=== PATIENT | female | born 1955 | race Caucasian/White ===

== ENCOUNTER → 2018-01-22 | Outpatient (CLI) | payer MEDICARE, MEDICAID ==
--- NOTE | 2018-01-23 10:42 | Diagnostic Imaging Report ---
Digital mammogram. Bilateral screening with 3-D tomosynthesis. The study was compared to prior exams of 03/30/2015. At this time there are no current complaints. The previous exam did note a poorly defined nodular density overlying the pectoralis muscle of the left breast on the MLO view. It was recommended this area be compressed in the MLO projection and ultrasound be performed. Those additional images were not obtained however. On this exam the density in question has increased in size and density. This finding is worrisome for malignancy. I would recommend that a compression view of this area be obtained in the MLO projection as well as an axial CC view for further study. Ultrasound should also be performed. The prior exam also noted a smaller area of increased density in the 12 o'clock position of the right breast. That finding is not as conspicuous on this exam. The tomographic images do suggest that there is a roughly 1 cm oval density in this area however. This may represent a cyst. I would recommend ultrasound of the right breast be performed for further study. Fibroglandular tissue in both breasts is extremely dense. This does limit the sensitivity of this exam. As on the previous study, there are numerous macro and microcalcifications scattered throughout both breasts. There is no primary or secondary sign of malignancy noted otherwise. Impression: 1. The nodular density overlying the pectoralis muscle on the left seen on previous exam has increased in size and density. This finding is worrisome for malignancy. Additional mammographic views and ultrasound would be recommend for further study. 2. Ultrasound would also be recommended for further evaluation of the nodular density in the 12 o'clock position of the right breast. ACR BI-RADS Category 0: Incomplete. (Needs additional imaging evaluation). Result letter will be mailed to the patient. Note: At least 10% of breast cancer is not imaged by mammography. Dictated on workstation # [id number]
== END ==
LOC: RAD 10:07
PROVIDERS: ATTEND Nurse Practitioner Community Health
DX: Z12.31 Encounter for screening mammogram for malignant neoplasm of breast (principal); R92.8 Other abnormal and inconclusive findings on diagnostic imaging of breast
CPT/HCPCS: 77067

== ENCOUNTER → 2018-02-12 | Outpatient (CLI) | payer MEDICARE, MEDICAID ==
--- NOTE | 2018-02-12 21:11 | Diagnostic Imaging Report ---
EXAM: Bilateral breast ultrasound, limited. INDICATION: Abnormal mammogram FINDINGS: The screening mammogram performed on 01/22/2018 noted a poorly defined density overlying the pectoralis muscle of the left breast in the upper-outer quadrant of the breast. The diagnostic mammogram performed prior to this study also identified this finding. On this exam, there is a 1.3 x 0.9 x 1.1 CM vascular mass in the 2 o'clock position roughly 12 CM from the nipple. This would correspond to the density seen on the mammogram. This finding is worrisome for malignancy. An ultrasound guided biopsy would be recommended for further study. There is also a 1.0 x 0.7 CM lymph node in this area. This lymph node has a generally benign appearance although it does seem somewhat hypervascular. Consequently, it could be involved by neoplasm, as well. There are also 2 benign-appearing cysts in the 12 o'clock position roughly 2 CM from the nipple. These measure approximately 0.6 x 0.6 CM and 1.0 x 1.1 CM. These cysts have a generally benign appearance. The screening mammogram also suggests that there may be a small rounded density in the 12 o'clock position of the right breast. The ultrasound examination of this area shows no definite abnormality in this region. However, in the 9 o'clock position approximately 3 CM from the nipple, there is a 0.9 x 0.8 x 0.8 CM avascular cyst with internal echoes. I suspect that this is a cyst which has bee complicated by infection and/or hemorrhage. It may prove worthwhile to have a short-term (6 month) followup ultrasound exam of this finding for further evaluation. IMPRESSION: 1. There is a solid mass in the upper-outer quadrant of the left breast. This would correspond to the mammographic abnormality and this finding is worrisome for neoplasm. Recommendations as above. 2. The suspected complex cyst in the 9 o'clock position of the right breast is most likely a benign process. A six-month follow-up ultrasound exam would be recommended for continued evaluation. 3. These results will be discussed with OZZY Gusman. ACR BI-RADS Category 4: Suspicious abnormality. Result letter will be mailed to the patient. Note: At least 10% of breast cancer is not imaged by mammography. CRITICAL FINDINGS Dictated by: Dictated on workstation # [id number]
--- NOTE | 2018-02-12 21:28 | Diagnostic Imaging Report ---
Unilateral diagnostic left mammogram. INDICATION: Abnormal screening mammogram. The current study was also evaluated with a Computer Aided Detection (CAD) system. FINDINGS: The screening mammogram performed on 01/22/2018 noted poorly defined nodular density overlying the pectoralis muscle of the left breast on the MLO view. The compression views of this area show that there is a poorly defined roughly 1 CM nodule in the upper-outer quadrant of the left breast. This finding is worrisome for malignancy. Ultrasound would be recommended for further evaluation. IMPRESSION: The poorly defined nodule in the upper-outer aspect of left breast is worrisome for malignancy. Ultrasound would be recommended for further study. ACR BI-RADS Category 0: Incomplete. (Needs additional imaging evaluation). Result letter will be mailed to the patient. Note: At least 10% of breast cancer is not imaged by mammography. Dictated by: Dictated on workstation # [id number]
== END ==
LOC: RAD 13:40
PROVIDERS: ATTEND Nurse Practitioner Community Health
DX: Z12.31 Encounter for screening mammogram for malignant neoplasm of breast (principal); N63.21 Unspecified lump in the left breast, upper outer quadrant; R92.8 Other abnormal and inconclusive findings on diagnostic imaging of breast
CPT/HCPCS: 76642

== ENCOUNTER 2018-03-16 13:18 | Outpatient (RCR) | payer MEDICARE, MEDICAID ==
[2018-03-16 14:47] LABS: BASOPHILS % (AUTO) 0 % (0-10); EOSINOPHILS # (AUTO) 0.1 10^3/uL (0.0-0.3); EOSINOPHILS % (AUTO) 1 % (0-10); HEMATOCRIT 40 % (35-52); HEMOGLOBIN 12.7 G/DL (11.5-16.0); LYMPHOCYTES # (AUTO) 2.6 X 10^3 (1.0-4.0); LYMPHOCYTES % (AUTO) 34 % (12-44); MEAN CORPUSCULAR HEMOGLOBIN 32 PG (25-34); MEAN CORPUSCULAR HGB CONC 32 G/DL (32-36); MEAN CORPUSCULAR VOLUME 102 FL (80-99); MEAN PLATELET VOLUME 9.8 FL (7.4-10.4); MONOCYTES # (AUTO) 0.5 X 10^3 (0.0-1.0); MONOCYTES % (AUTO) 7 % (0-12); NEUTROPHILS # (AUTO) 4.5 X 10^3 (1.8-7.8); NEUTROPHILS % (AUTO) 58 % (42-75); PLATELET COUNT 275 10^3/uL (130-400); RED CELL DISTRIBUTION WIDTH 13.4 % (10.0-14.5); WHITE BLOOD COUNT 7.8 10^3/uL (4.3-11.0)
[2018-03-16 15:09] LABS: ALANINE AMINOTRANSFERASE 16 U/L (0-55); ALKALINE PHOSPHATASE 94 U/L (40-136); BILIRUBIN,TOTAL 0.2 MG/DL (0.1-1.0); BUN/CREATININE RATIO 32; CALCIUM 9.4 MG/DL (8.5-10.1); CARBON DIOXIDE 29 MMOL/L (21-32); CHLORIDE 108 MMOL/L (98-107); CREATININE SERUM 0.77 MG/DL (0.60-1.30); GFR ESTIMATED > 60; GLUCOSE 83 MG/DL (70-105); POTASSIUM 4.4 MMOL/L (3.6-5.0); SODIUM 146 MMOL/L (135-145); TOTAL PROTEIN 7.3 GM/DL (6.4-8.2)
== END 2018-06-14 | disposition home or self-care (01) ==
LOC: ONC 13:18
PROVIDERS: ATTEND Internal Medicine Hematology & Oncology
DX: C50.412 Malignant neoplasm of upper-outer quadrant of left female breast (principal); Z17.0 Estrogen receptor positive status [ER+]; E78.5 Hyperlipidemia, unspecified; Z87.820 Personal history of traumatic brain injury; Z79.899 Other long term (current) drug therapy
CPT/HCPCS: 36415; 80053; 85025; 99214

== ENCOUNTER → 2018-03-22 | Outpatient (CLI) | payer MEDICARE, MEDICAID ==
[~2018-03-22] MED LIST: GADOBUTROL 7.5 MMOL/7.5 ML (GADAVIST) VIAL IV ONE
--- NOTE | 2018-03-23 13:08 | Diagnostic Imaging Report ---
TECHNIQUE: Utilizing a 1.5 Ayana magnet, the patient was placed in a prone position with an 8-channel dual breast coil utilized. Axial STIR precontrasted and axial T1 fat-sat post contrast high-resolution images were obtained. Sagittal T2-weighted images precontrast bilaterally were performed as well. Sagittal vibrant temporal images were obtained pre and post contrast with bolus technique utilizing gadolinium. Images are post contrast immediately and subsequently for 7 minutes. Axial post contrast imaging was also obtained. Pre and post contrasted images were then evaluated with Whisper for evaluation of possible angiogenesis. INDICATION: Lobular breast cancer. COMPARISON: 03/07/2018, 02/12/2018, and 01/22/2018. FINDINGS: The bilateral breasts demonstrate severe background glandularity. The bilateral breasts demonstrate mild background enhancement. An irregular 1.4 x 1.2 cm enhancing mass is identified within the left axilla. Magnetic susceptibility artifact is identified within the region, consistent with the biopsy clip that was recently placed. This mass demonstrates enhancement including washout kinetics. This mass is seen extending to and abutting the overlying skin surface within the left axilla. Multiple scattered T1 hyperintense round masses are identified throughout the bilateral breasts. There is no significant enhancement associated with any of these T1 hyperintense lesions. Additionally, a T2 hyperintense cyst with thin peripheral enhancement is identified within the left breast at 12 o'clock at anterior to middle depth. No concerning enhancement is associated with this cyst. No additional suspicious mass or non-mass enhancement within either breast. No additional axillary or internal mammary adenopathy. The minimally visualized portions of the upper abdomen are unremarkable. IMPRESSION: 1.4 x 1.2 cm irregular enhancing mass within the left axilla is consistent with the patient's known neoplasm. This does appear to extend to the skin surface based upon this MRI. No additional suspicious mass or non-mass enhancement. Multiple bilateral T1 hyperintense debris-filled cysts without suspicious enhancement are felt to be benign in nature. BI-RADS CATEGORY 6: Known malignancy. FOLLOWUP: Continued surgical consultation for known left breast carcinoma. Dictated by: Dictated on workstation # [id number]
== END ==
LOC: RAD 10:19
PROVIDERS: ATTEND Internal Medicine Hematology & Oncology
DX: C50.919 Malignant neoplasm of unspecified site of unspecified female breast (principal); R22.32 Localized swelling, mass and lump, left upper limb; M85.68 Other cyst of bone, other site
CPT/HCPCS: 77049

== ENCOUNTER → 2018-06-20 | Outpatient (CLI) | payer MEDICARE, MEDICAID ==
[2018-06-20 09:42] LABS: BASOPHILS % (AUTO) 0 % (0-10); EOSINOPHILS % (AUTO) 0 % (0-10); HEMATOCRIT 37 % (35-52); HEMOGLOBIN 11.7 G/DL (11.5-16.0); LYMPHOCYTES # (AUTO) 1.7 X 10^3 (1.0-4.0); LYMPHOCYTES % (AUTO) 21 % (12-44); MEAN CORPUSCULAR HEMOGLOBIN 32 PG (25-34); MEAN CORPUSCULAR HGB CONC 32 G/DL (32-36); MEAN CORPUSCULAR VOLUME 100 FL (80-99); MEAN PLATELET VOLUME 9.1 FL (7.4-10.4); MONOCYTES # (AUTO) 0.6 X 10^3 (0.0-1.0); MONOCYTES % (AUTO) 8 % (0-12); NEUTROPHILS # (AUTO) 5.7 X 10^3 (1.8-7.8); NEUTROPHILS % (AUTO) 71 % (42-75); PLATELET COUNT 246 10^3/uL (130-400); RED CELL DISTRIBUTION WIDTH 13.5 % (10.0-14.5); WHITE BLOOD COUNT 8.1 10^3/uL (4.3-11.0)
[2018-06-20 10:09] LABS: ALANINE AMINOTRANSFERASE 20 U/L (0-55); ALBUMIN 3.6 GM/DL (3.2-4.5); ALKALINE PHOSPHATASE 97 U/L (40-136); BILIRUBIN,TOTAL 0.3 MG/DL (0.1-1.0); BUN/CREATININE RATIO 25; CALCIUM 9.2 MG/DL (8.5-10.1); CARBON DIOXIDE 33 MMOL/L (21-32); CHLORIDE 100 MMOL/L (98-107); CREATININE SERUM 0.77 MG/DL (0.60-1.30); GFR ESTIMATED > 60; GLUCOSE 92 MG/DL (70-105); POTASSIUM 3.9 MMOL/L (3.6-5.0); SODIUM 140 MMOL/L (135-145); TOTAL PROTEIN 6.5 GM/DL (6.4-8.2)
== END ==
LOC: LAB 09:27
PROVIDERS: ATTEND Internal Medicine Hematology & Oncology
DX: C50.412 Malignant neoplasm of upper-outer quadrant of left female breast (principal); Z17.0 Estrogen receptor positive status [ER+]
CPT/HCPCS: 36415; 80053; 85025

== ENCOUNTER → 2018-07-11 | Outpatient (CLI) | payer MEDICARE, MEDICAID ==
[2018-07-11 11:48] LABS: BASOPHILS % (AUTO) 0 % (0-10); EOSINOPHILS % (AUTO) 0 % (0-10); HEMATOCRIT 38 % (35-52); HEMOGLOBIN 11.9 G/DL (11.5-16.0); LYMPHOCYTES # (AUTO) 1.1 X 10^3 (1.0-4.0); LYMPHOCYTES % (AUTO) 10 % (12-44); MEAN CORPUSCULAR HEMOGLOBIN 31 PG (25-34); MEAN CORPUSCULAR HGB CONC 32 G/DL (32-36); MEAN CORPUSCULAR VOLUME 99 FL (80-99); MONOCYTES # (AUTO) 0.2 X 10^3 (0.0-1.0); MONOCYTES % (AUTO) 2 % (0-12); NEUTROPHILS # (AUTO) 9.6 X 10^3 (1.8-7.8); NEUTROPHILS % (AUTO) 88 % (42-75); PLATELET COUNT 279 10^3/uL (130-400); RED CELL DISTRIBUTION WIDTH 13.6 % (10.0-14.5); WHITE BLOOD COUNT 10.9 10^3/uL (4.3-11.0)
[2018-07-11 12:07] LABS: ALANINE AMINOTRANSFERASE 28 U/L (0-55); ALBUMIN 3.7 GM/DL (3.2-4.5); ALKALINE PHOSPHATASE 83 U/L (40-136); BILIRUBIN,TOTAL 0.3 MG/DL (0.1-1.0); BUN/CREATININE RATIO 16; CALCIUM 9.6 MG/DL (8.5-10.1); CARBON DIOXIDE 32 MMOL/L (21-32); CHLORIDE 105 MMOL/L (98-107); CREATININE SERUM 0.74 MG/DL (0.60-1.30); GFR ESTIMATED > 60; GLUCOSE 103 MG/DL (70-105); SODIUM 142 MMOL/L (135-145); TOTAL PROTEIN 6.7 GM/DL (6.4-8.2)
[2018-07-11 12:11] LABS: BAND NEUTROPHILS 4 %; BASOPHILS % (MANUAL) 0 %; EOSINOPHILS % (MANUAL) 0 %; LYMPHOCYTES % (MANUAL) 9 %; MONOCYTES % (MANUAL) 2 %; NEUTROPHILS % (MANUAL) 85 %; RBC MORPH NORMAL
== END ==
LOC: LAB 11:27
PROVIDERS: ATTEND Internal Medicine Hematology & Oncology
DX: C50.912 Malignant neoplasm of unspecified site of left female breast (principal); Z17.0 Estrogen receptor positive status [ER+]
CPT/HCPCS: 36415; 80053; 85007; 85027

== ENCOUNTER → 2018-08-01 | Outpatient (CLI) | payer MEDICARE, MEDICAID | LOC: LAB 08:00 | PROVIDERS: ATTEND Internal Medicine Hematology & Oncology | DX: C50.912 Malignant neoplasm of unspecified site of left female breast (principal); Z17.0 Estrogen receptor positive status [ER+] ==

== ENCOUNTER 2018-11-13 07:50 | Outpatient (RCR) | payer MEDICARE, MEDICAID | END 2018-12-18 | disposition home or self-care (01) | LOC: ONC 07:50 | PROVIDERS: ATTEND Internal Medicine Hematology & Oncology | DX: Z51.0 Encounter for antineoplastic radiation therapy (principal); C50.412 Malignant neoplasm of upper-outer quadrant of left female breast; Z17.0 Estrogen receptor positive status [ER+]; E78.5 Hyperlipidemia, unspecified; Z87.820 Personal history of traumatic brain injury; Z79.899 Other long term (current) drug therapy | CPT/HCPCS: 77280; 77290; 77295; 77300; 77307; 77334; 77336; 77417; 77470; 99204 ==

== ENCOUNTER → 2018-12-25 | Outpatient (CLI) | payer MEDICARE, MEDICAID ==
--- NOTE | 2018-12-25 09:31 | Diagnostic Imaging Report ---
INDICATION: Postmenopausal female. COMPARISON: None. FINDINGS: AP Spine L1-L4: [BMD (g/cm2): 1.102] [T-Score: -0.8] [Z-Score: 0.7] [BMD Previous: N/A] [BMD % Change: N/A] LT Hip Neck: [BMD (g/cm2): 0.797] [T-Score: -1.7] [Z-Score: -0.3] LT Hip Total: [BMD (g/cm2):0.922] [T-Score:-0.7] [Z-Score: 0.5] [BMD Previous: N/A] [BMD % Change: N/A] RT Hip Neck: [BMD (g/cm2):0.665] [T-Score:-2.7] [Z-Score:-1.2] RT Hip Total: [BMD (g/cm2):0.802] [T-score:-1.6] [Z-Score:-0.5] [BMD Previous:N/A] [BMD % Change:N/A] *Indicates significant change from prior examination based on 95% confidence level. World Health Organization criteria for BMD interpretation classify patients as Normal (T-score at or above -1.0), Osteopenic (T-score between -1.0 and -2.5) or Osteoporotic (T-score at or below -2.5). LIMITATIONS AND MODIFICATION: Degenerative changes in the lower lumbar spine may falsely elevate bone density. FRACTURE RISK (FRAX SCORE): Not applicable. IMPRESSION: 1. Osteoporosis. 2. Baseline examination. 3. See below National Osteoporosis Foundation guidelines on when to potentially initiate pharmacologic therapy. Based on the National Osteoporosis Foundation Guidelines, pharmacologic treatment should be initiated in any of the following, unless clinical conditions suggest otherwise: * Any patient with prior fragility fracture of the hip or vertebrae. A spine fracture indicates 5X risk for subsequent spine fracture and 2X risk for subsequent hip fracture. * Osteoporosis (T-score <-2.5). * Postmenopausal women and men age 50 and older with low bone mass/osteopenia (T-score between -1.0 and -2.5) by DXA and 10-year major osteoporotic fracture greater than 20% or a 10-year probability of hip fracture greater than 3%. These fracture risks are supplied above in the FRAX score, if applicable. * Clinician judgement and/or patient preferences may indicate treatment for people with 10-year fracture probabilities above or below these levels. Dictated by: Dictated on workstation # [id number]
== END ==
LOC: RAD 08:07
PROVIDERS: ATTEND Internal Medicine Hematology & Oncology
DX: C50.912 Malignant neoplasm of unspecified site of left female breast (principal); N81.0 Urethrocele; Z17.0 Estrogen receptor positive status [ER+]; Z78.0 Asymptomatic menopausal state
CPT/HCPCS: 77080

== ENCOUNTER 2019-01-16 05:29 | Outpatient (CLI) | payer MEDICARE, MEDICAID ==
[~2019-01-16] VITALS: Ht 63 cm; Wt 59.0 kg
[2019-01-16] MEDS ORDERED: MELA10TA3 PO (10:59)
[2019-01-16] MEDS ORDERED: ATOR40TA70 PO (10:59)
[2019-01-16] MEDS ORDERED: MEMA28CA5 PO (10:59)
[2019-01-16] MEDS ORDERED: LETR2.5T5 PO (10:59)
[2019-01-16] MEDS ORDERED: AMIT100T2 PO (10:59)
[2019-01-16] MEDS ORDERED: DONE23TA PO (10:59)
[2019-01-16] MEDS ORDERED: CA C1TAB75 PO (10:59)
[2019-01-16] MEDS ORDERED: GBPN600T PO (10:59)
== END 2019-01-16 11:46 | disposition home or self-care (01) ==
LOC: PREOP 05:29
PROVIDERS: ATTEND Specialist
DX: Z01.818 Encounter for other preprocedural examination (principal)

== ENCOUNTER 2019-01-18 09:57 | Day surgery (SDC) | payer MEDICARE, MEDICAID ==
[~2019-01-18] VITALS: Ht 160 cm; Wt 59.0 kg
[~2019-01-18 09:57] MED LIST changes: +AMIT100T2 PO; +ATOR40TA70 PO; +CA C1TAB75 PO; +DONE23TA PO; -GADOBUTROL 7.5 MMOL/7.5 ML (GADAVIST) VIAL IV ONE; +GBPN600T PO; +LETR2.5T5 PO; +MELA10TA3 PO; +MEMA28CA5 PO
[2019-01-18 10:00] VITALS: BP 111/68
[2019-01-18] MEDS ORDERED: TIMOLOL MALEATE 0.5% 5 ML (TIMOPTIC) BTL OU PRN (10:15)
[2019-01-18] MEDS ORDERED: MOXIFLOXACIN OPHTH SOLN 5 MG/ML 0.3 ML SYRINGE OP ONE (10:15)
[2019-01-18] MEDS ORDERED: POVIDONE (BETADINE) OPHTH SOLN 5% 30 ML OP ONE (10:15)
[2019-01-18] MEDS ORDERED: LIDOCAINE PF 1% 2 ML AMP IR PRN (10:15)
[2019-01-18] MEDS: TETRACAINE 0.5% OPHTH SOLN 4 ML BTL (SINGLE DOSE ONLY) OU PRN ×4 (10:25→10:50)
[2019-01-18] MEDS: PHENYLEPHRINE 10% OPHTH (NEO-SYN) 5 ML BTL OU SCH ×3 (10:33→10:50)
[2019-01-18] MEDS: CYCLOPENTOLATE 1% (CYCLOGYL) 2 ML DROPS OP SCH ×3 (10:34→10:50)
[2019-01-18] MEDS ORDERED: MIDAZOLAM 2 MG/2 ML (VERSED) VIAL ONE (10:52)
--- NOTE | 2019-01-18 11:10 | Ophthalmologist Pre-Op Note ---
Pre-Operative Progress Note H&P Reviewed The H&P was reviewed, patient examined and no changes noted. Date H&P Reviewed: Jan 18, 2019 Time H&P Reviewed: 11:09 Pre-Op Dx Cataract, Left Eye NINO DELAROSA MD Jan 18, 2019 11:10 POS
[2019-01-18] MEDS ORDERED: acetaZOLAMIDE ER 500 MG CAP (DIAMOX SEQUELS) PO ONE (11:30)
--- NOTE | 2019-01-18 11:35 | Ophthalmology Operative Report ---
Cataract, Miotic Pupil PREOPERATIVE DIAGNOSIS: 1. Cataract Left Eye 2. Miotic Pupil POSTOPERATIVE DIAGNOSIS: 1. Cataract Left Eye 2. Miotic Pupil PROCEDURE: 1. Cataract removal and placement of posterior chamber implant, left eye 2. Pupillary expansion with malyugin ring SURGEON: Marcos Delarosa ANESTHESIA: Topical with sedation COMPLICATIONS: None ESTIMATED BLOOD LOSS: Minimal DESCRIPTION OF PROCEDURE: After proper informed consent was obtained, the patient, a 63 female, was taken to the Operating Room and the left eye was anesthetized with Tetracaine. The eye was then prepped and draped in the usual manner. A wire lid speculum was placed. A paracentesis was made at the left hand position. Preservative free l idocaine was injected into anterior chamber followed by viscoelastic. A clear corneal incision was made in the temporal position. The malyugin ring was injected into the anterior chamber and the pupil was dilated. A capsulorrhexis was preformed and the central nuclear and cortical material were removed. The posterior capsule was polished and Gómez 20.0 AU00T0 IOL was placed into the capsular bag. The myalgian ring was removed. The residual viscoelastic was aspirated and the balanced saline solution was injected into the anterior chamber. Moxifloxacin was injected into the anterior chamber. The wound was checked and found to be water tight. The patient tolerated the procedure well without complications. [Limbal Relaxing Incision placed ] [ ]mm at [ ]. MARCOS DELAROSA MD Jan 18, 2019 11:35 POS
[2019-01-18 11:40] VITALS: BP 90/54
--- NOTE | 2019-01-18 13:10 | Anesthesia-General Post-Op ---
MAC Patient Condition Mental Status/LOC: Same as Preop Cardiovascular: Satisfactory Nausea/Vomiting: Absent Respiratory: Satisfactory Pain: Controlled Complications: Absent Post Op Complications Complications None Follow Up Care/Instructions Patient Instructions None needed. Anesthesiology Discharge Order Discharge Order Patient is doing well, no complaints, stable vital signs, no apparent adverse anesthesia problems. No complications reported per nursing. KATERINA BUCK CRNA Jan 18, 2019 13:10 POS
== END 2019-01-18 11:40 | disposition home or self-care (01) ==
LOC: SDC 09:57
PROVIDERS: ATTEND Specialist
DX: H25.12 Age-related nuclear cataract, left eye (principal); H57.03 Miosis; F41.9 Anxiety disorder, unspecified; E78.00 Pure hypercholesterolemia, unspecified; Z85.3 Personal history of malignant neoplasm of breast; Z87.891 Personal history of nicotine dependence; F32.9 Major depressive disorder, single episode, unspecified; G62.9 Polyneuropathy, unspecified; Z79.899 Other long term (current) drug therapy

== ENCOUNTER 2019-01-18 10:37 | Outpatient (CLI) | payer MEDICARE, MEDICAID ==
[~2019-01-18] VITALS: Ht 160 cm; Wt 59.0 kg
== END 2019-01-18 13:30 | disposition home or self-care (01) ==
LOC: PREOP 10:37
PROVIDERS: ATTEND Surgery
DX: Z01.818 Encounter for other preprocedural examination (principal)

== ENCOUNTER 2019-02-07 09:15 | Outpatient (CLI) | payer MEDICARE, MEDICAID | END 2019-02-07 09:59 | disposition home or self-care (01) | LOC: PREOP 09:15 | PROVIDERS: ATTEND Specialist | DX: Z01.818 Encounter for other preprocedural examination (principal) ==

== ENCOUNTER 2019-02-08 10:03 | Day surgery (SDC) | payer MEDICARE, MEDICAID ==
[~2019-02-08] VITALS: Ht 160 cm; Wt 59.0 kg
[2019-02-08 10:10] VITALS: BP 113/63
[2019-02-08] MEDS ORDERED: POVIDONE (BETADINE) OPHTH SOLN 5% 30 ML OP ONE (10:15)
[2019-02-08] MEDS ORDERED: TIMOLOL MALEATE 0.5% 5 ML (TIMOPTIC) BTL OU PRN (10:15)
[2019-02-08] MEDS ORDERED: LIDOCAINE PF 1% 2 ML AMP IR PRN (10:15)
[2019-02-08] MEDS ORDERED: MOXIFLOXACIN OPHTH SOLN 5 MG/ML 0.3 ML SYRINGE OP ONE (10:15)
[2019-02-08] MEDS: TETRACAINE 0.5% OPHTH SOLN 4 ML BTL (SINGLE DOSE ONLY) OU PRN ×4 (10:22→10:52)
[2019-02-08] MEDS: PHENYLEPHRINE 10% OPHTH (NEO-SYN) 5 ML BTL OU SCH ×3 (10:32→10:52)
[2019-02-08] MEDS: CYCLOPENTOLATE 1% (CYCLOGYL) 2 ML DROPS OP SCH ×3 (10:32→10:52)
--- NOTE | 2019-02-08 10:38 | Ophthalmologist Pre-Op Note ---
Pre-Operative Progress Note H&P Reviewed The H&P was reviewed, patient examined and no changes noted. Date H&P Reviewed: Feb 08, 2019 Time H&P Reviewed: 10:38 Pre-Op Dx Cataract, Right Eye NINO DELAROSA MD Feb 08, 2019 10:38 POS
[2019-02-08] MEDS ORDERED: MIDAZOLAM 2 MG/2 ML (VERSED) VIAL ONE (11:10)
--- NOTE | 2019-02-08 11:29 | Ophthalmology Operative Report ---
Cataract removal/placement IOL PREOPERATIVE DIAGNOSIS: Cataract Right Eye POSTOPERATIVE DIAGNOSIS: Cataract Right Eye PROCEDURE: Cataract removal and placement of posterior chamber implant, right eye SURGEON: Marcos Delarosa ANESTHESIA: Topical with sedation COMPLICATIONS: None ESTIMATED BLOOD LOSS: Minimal DESCRIPTION OF PROCEDURE: After proper informed consent was obtained, the patient, a 63 female, was taken to the Operating Room and the right eye was anesthetized with tetracaine. The right eye was then prepped and draped in the usual manner. A wire lid speculum was placed. A paracentesis was made at the left hand position. Preservative free lidocaine was injected into the anterior chamber followed by viscoelastic. A clear corneal incision was made in the temporal position. A capsulorrhexis was preformed and the central nuclear and cortical material were removed. The posterior capsule was polished and Gómez 20.0 AU00T0 IOL was placed into the capsular bag. The residual viscoelastic was aspirated and balanced saline solution was injected into the anterior chamber. Moxifloxacin was injected into the anterior chamber. The wound was checked and found to be water tight. The patient tolerated the procedure well without complications. MARCOS DELAROSA MD Feb 08, 2019 11:29 POS
[2019-02-08 11:37] VITALS: BP 98/48
[2019-02-08] MEDS ORDERED: acetaZOLAMIDE ER 500 MG CAP (DIAMOX SEQUELS) PO ONE (12:00)
--- NOTE | 2019-02-08 12:00 | Anesthesia-General Post-Op ---
MAC Patient Condition Mental Status/LOC: Same as Preop Cardiovascular: Satisfactory Nausea/Vomiting: Absent Respiratory: Satisfactory Pain: Controlled Complications: Absent Post Op Complications Complications None Follow Up Care/Instructions Patient Instructions None needed. Anesthesiology Discharge Order Discharge Order Patient is doing well, no complaints, stable vital signs, no apparent adverse anesthesia problems. No complications reported per nursing. DEB HUDSON CRNA Feb 08, 2019 12:00 POS
== END 2019-02-08 11:37 | disposition home or self-care (01) ==
LOC: SDC 10:03
PROVIDERS: ATTEND Specialist
DX: H25.11 Age-related nuclear cataract, right eye (principal); E78.5 Hyperlipidemia, unspecified; G62.9 Polyneuropathy, unspecified; E78.00 Pure hypercholesterolemia, unspecified; F32.9 Major depressive disorder, single episode, unspecified; F41.9 Anxiety disorder, unspecified; Z85.3 Personal history of malignant neoplasm of breast; Z90.710 Acquired absence of both cervix and uterus; Z79.899 Other long term (current) drug therapy

== ENCOUNTER 2019-03-08 12:30 | Outpatient (CLI) | payer MEDICARE, MEDICAID ==
[~2019-03-08] VITALS: Ht 160 cm; Wt 59.0 kg
== END 2019-03-08 12:58 | disposition home or self-care (01) ==
LOC: PREOP 12:30
PROVIDERS: ATTEND Surgery
DX: Z01.818 Encounter for other preprocedural examination (principal)

== ENCOUNTER 2019-05-05 10:20 | Emergency (ER) | payer OTHER, MEDICAID ==
[~2019-05-05] VITALS: Ht 157.4 cm; Wt 61.8 kg
[~2019-05-05 10:20] MED LIST changes: -LETR2.5T5 PO; +LETR2.5T6 PO
--- NOTE | 2019-05-05 10:40 | NUR ---
NO MED LIST WITH PATIENT
--- NOTE | 2019-05-05 10:42 | ED Upper Extremity ---
General Chief Complaint: Upper Extremity Stated Complaint: L ARM SWOLLEN/POSS FLUID/BREAST CANCER Source: patient Exam Limitations: no limitations History of Present Illness Date Seen by Provider: May 05, 2019 Time Seen by Provider: 10:41 Initial Comments 63-year-old female brought in with left arm swollen. Patient reports that she noticed this morning that was swollen. It is warm to the touch. He denies any pain to the arm. She denies any pain. She does report she's had breast cancer on the left breast with surgery. Patient denies any other systemic complaints Allergies and Home Medications Allergies Coded Allergies: No Known Drug Allergies (Unverified , 01/18/19) Home Medications Amitriptyline HCl 100 Mg Tablet, 100 MG PO DAILY, (Reported) Atorvastatin Calcium 40 Mg Tablet, 40 MG PO DAILY, (Reported) Ca Carbonate/Vitamin D3/Vit K 1 Each Tab.chew, 1 EACH PO DAILY, (Reported) Donepezil HCl 23 Mg Tablet, 23 MG PO HS, (Reported) Gabapentin 600 Mg Tablet, 600 MG PO TID, (Reported) Letrozole 2.5 Mg Tablet, 2.5 MG PO DAILY, (Reported) Melatonin 10 Mg Tablet.er, 20 MG PO HS, (Reported) Memantine HCl 28 Mg Cap.spr.24, 28 MG PO DAILY, (Reported) Patient Home Medication List Home Medication List Reviewed: Yes Review of Systems Constitutional: No chills, No fever Respiratory: no symptoms reported Cardiovascular: no symptoms reported Gastrointestinal: no symptoms reported Genitourinary: no symptoms reported Musculoskeletal: see HPI Skin: see HPI Past Izpybgq-[id number]-Euhhsi Hx Past Med/Social Hx: Reviewed Nursing Past Med/Soc Hx Patient Social History Type Used: Cigarettes Former Smoker, Quit: Jan 19, 2012 2nd Hand Smoke Exposure: Yes Recent Foreign Travel: No Recent Hopitalizations: No Immunizations Up To Date Tetanus Booster (TDap): Unknown Seasonal Allergies Seasonal Allergies: No Past Medical History Surgeries: Yes (LUMPECTOMY WITH LYMPH NODE, CATARACT, ) Hysterectomy Respiratory: No Currently Using CPAP: No Currently Using BIPAP: No Cardiac: Yes High Cholesterol Neurological: Yes Headaches /Migraines, Neuropathy [employer] History: Hysterectomy Sexually Transmitted Disease: No HIV/AIDS: No Genitourinary: No Gastrointestinal: Yes (rectal mass) Chronic Constipation Musculoskeletal: No Endocrine: No HEENT: Yes Cataract Loss of Vision: Denies Hearing Impairment: Denies Cancer: Yes Breast Did You Recieve Any Treatments: Yes What Type of Treatment Did You: Chemotherapy, Radiation, Surgical Intervention Psychosocial: Yes Anxiety, Depression Integumentary: No Blood Disorders: No Adverse Reaction/Blood Tranf: No (N/A) Physical Exam Vital Signs Vital Signs - First Documented 05/05/19 10:32 Temp 36.8 Pulse 104 Resp 18 B/P (MAP) 106/47 (66) Pulse Ox 99 Capillary Refill : Height, Weight, BMI Height: 5'2.00" Weight: 140lbs. 0.0oz. 63.610604yc; 23.04 BMI Method: General Appearance: WD/WN, no apparent distress Neck: non-tender, supple Cardiovascular: normal peripheral pulses Respiratory: chest non-tender, lungs clear Gastrointestinal: non tender, soft Back: normal inspection Elbow/Forearm: swelling (patient with some minor swelling in the forearm wrist and hand. It is warm to the touch. There is no erythema) Neurologic/Tendon: normal sensation, normal tendon functions Neurologic/Psychiatric: trouble tracer II-XII nml as tested, normal mood/affect, oriented x 3 Skin: normal color Progress/Results/Core Measures Results/Orders Lab Results Laboratory Tests Test 05/05/19 11:08 Range/Units White Blood Count 4.3 4.3-11.0 10^3/uL Red Blood Count 3.81 L 4.35-5.85 10^6/uL Hemoglobin 12.0 11.5-16.0 G/DL Hematocrit 37 35-52 % Mean Corpuscular Volume 97 80-99 FL Mean Corpuscular Hemoglobin 31 25-34 PG Mean Corpuscular Hemoglobin Concent 32 32-36 G/DL Red Cell Distribution Width 13.4 10.0-14.5 % Platelet Count 197 130-400 10^3/uL Mean Platelet Volume 8.7 7.4-10.4 FL Neutrophils (%) (Auto) 68 42-75 % Lymphocytes (%) (Auto) 20 12-44 % Monocytes (%) (Auto) 11 0-12 % Eosinophils (%) (Auto) 1 0-10 % Basophils (%) (Auto) 1 0-10 % Neutrophils # (Auto) 2.9 1.8-7.8 X 10^3 Lymphocytes # (Auto) 0.8 L 1.0-4.0 X 10^3 Monocytes # (Auto) 0.5 0.0-1.0 X 10^3 Eosinophils # (Auto) 0.1 0.0-0.3 10^3/uL Basophils # (Auto) 0.0 0.0-0.1 10^3/uL Erythrocyte Sedimentation Rate 31 H 0-30 MM/HR D-Dimer 0.34 0.00-0.49 UG/ML Sodium Level 142 135-145 MMOL/L Potassium Level 4.0 3.6-5.0 MMOL/L Chloride Level 105 98-107 MMOL/L Carbon Dioxide Level 26 21-32 MMOL/L Anion Gap 11 5-14 MMOL/L Blood Urea Nitrogen 13 7-18 MG/DL Creatinine 0.77 0.60-1.30 MG/DL Estimat Glomerular Filtration Rate > 60 BUN/Creatinine Ratio 17 Glucose Level 139 H 70-105 MG/DL Uric Acid 3.3 2.6-7.2 MG/DL Calcium Level 9.0 8.5-10.1 MG/DL C-Reactive Protein High Sensitivity 0.36 0.00-0.50 MG/DL My Orders Orders - WILNER CASTRO L DO Basic Metabolic Panel (05/05/19 10:55) Cbc With Automated Diff (05/05/19 10:55) Hs C Reactive Protein (05/05/19 10:55) Erythrocyte Sedimentation Rate (05/05/19 10:55) Uric Acid (05/05/19 10:55) Fibrin Degradation Products (05/05/19 12:02) Vital Signs/I&O 05/05/19 10:32 Temp 36.8 Pulse 104 Resp 18 B/P (MAP) 106/47 (66) Pulse Ox 99 Progress Progress Note : Time: 12:32 Progress Note Patient with negative CRP, CBC, d-dimer with very slight elevation an ESR. Patient with likely lymphedema with low risk for blood clot. I will schedule an outpatient ultrasound of the right upper extremity however. At this time patient is not wanting Eliquis list or other prophylactic treatment for possible blood clot since his low risk. She should wear a compression sleeve and keep her extremity elevated. Follow-up with her primary care provider the next day or 2. Departure Impression Primary Impression: Lymphedema of left upper extremity Disposition: HOME, SELF-CARE Condition: Stable Departure-Patient Inst. Referrals: ALAN MITCHELL (PCP/Family) Primary Care Physician Patient Instructions: Lymphedema, Lowering Your Chance for Lymphedema, Swelling Add. Discharge Instructions: Please follow-up with her primary care provider in the next 1-2 days for continuation of care Emergency department focuses on treating and ruling out life-threatening d iseases. Whenever possible, a diagnosis is given. However, most patients are given an impression based on their history, physical exam, and workup during your brief time in the ER. Information about probable diagnosis and other educational material has been provided. Please take the time to read and understand this information. It is very important that you follow up with a physician as discussed during the visit today. Failure to adhere to your follow-up instructions may lead to severe disability, injury, or so please make sure to keep your appointments or obtain one as requested. Please keep in mind the emergency department is not designed to your primary care or "family doctor" and nonurgent issues are best evaluated by an outpatient physician All discharge instructions reviewed with patient and/or family. Voiced understanding. WILNER CASTRO DO May 05, 2019 10:41
[2019-05-05 11:16] LABS: BASOPHILS % (AUTO) 1 % (0-10); EOSINOPHILS # (AUTO) 0.1 10^3/uL (0.0-0.3); EOSINOPHILS % (AUTO) 1 % (0-10); HEMATOCRIT 37 % (35-52); LYMPHOCYTES # (AUTO) 0.8 X 10^3 (1.0-4.0); LYMPHOCYTES % (AUTO) 20 % (12-44); MEAN CORPUSCULAR HEMOGLOBIN 31 PG (25-34); MEAN CORPUSCULAR HGB CONC 32 G/DL (32-36); MEAN CORPUSCULAR VOLUME 97 FL (80-99); MEAN PLATELET VOLUME 8.7 FL (7.4-10.4); MONOCYTES # (AUTO) 0.5 X 10^3 (0.0-1.0); MONOCYTES % (AUTO) 11 % (0-12); NEUTROPHILS # (AUTO) 2.9 X 10^3 (1.8-7.8); NEUTROPHILS % (AUTO) 68 % (42-75); PLATELET COUNT 197 10^3/uL (130-400); RED CELL DISTRIBUTION WIDTH 13.4 % (10.0-14.5); WHITE BLOOD COUNT 4.3 10^3/uL (4.3-11.0)
[2019-05-05 11:40] LABS: BUN/CREATININE RATIO 17; CARBON DIOXIDE 26 MMOL/L (21-32); CHLORIDE 105 MMOL/L (98-107); CREATININE SERUM 0.77 MG/DL (0.60-1.30); GFR ESTIMATED > 60; GLUCOSE 139 MG/DL (70-105); SODIUM 142 MMOL/L (135-145); URIC ACID 3.3 MG/DL (2.6-7.2)
[2019-05-05 11:51] LABS: ERYTHROCYTE SEDIMENTATION RATE 31 MM/HR (0-30)
[2019-05-05 12:43] VITALS: BP 98/52
== END 2019-05-05 12:43 | disposition home or self-care (01) ==
LOC: EDUNIT# 10:20 → ER 10:21
DX: I89.0 Lymphedema, not elsewhere classified (principal); E78.00 Pure hypercholesterolemia, unspecified; F41.9 Anxiety disorder, unspecified; F32.9 Major depressive disorder, single episode, unspecified; Z85.3 Personal history of malignant neoplasm of breast; Z77.22 Contact with and (suspected) exposure to environmental tobacco smoke (acute) (chronic); Z87.891 Personal history of nicotine dependence
CPT/HCPCS: 36415; 80048; 84550; 85025; 85379; 85652; 86141

== ENCOUNTER → 2019-05-06 | Outpatient (CLI) | payer OTHER, MEDICAID ==
--- NOTE | 2019-05-06 13:54 | Diagnostic Imaging Report ---
INDICATION: Left arm swelling and pain. COMPARISON: None. TECHNIQUE: Duplex, hamm-scale and color-flow imaging of the left upper extremity venous system was performed. FINDINGS: Left jugular and subclavian veins show no evidence of intraluminal thrombosis. The axillary, brachial, basilic and cephalic veins are patent. These vessels show normal compressibility, color flow and Doppler augmentation. IMPRESSION: Negative venous Doppler of left upper extremity. Dictated by: Dictated on workstation # [id number]
== END ==
LOC: RAD 12:34
PROVIDERS: ATTEND Emergency Medicine
DX: R22.32 Localized swelling, mass and lump, left upper limb (principal)

== ENCOUNTER 2019-10-31 21:13 | Emergency (ER) | payer OTHER, MEDICAID ==
[~2019-10-31] VITALS: Ht 157 cm; Wt 62.0 kg
[2019-10-31] MEDS ORDERED: CLINDAMYCIN 900 MG/50 ML IVPB 50 ML IV ONE (21:45)
[2019-10-31 22:16] LABS: BASOPHILS % (AUTO) 0 % (0-10); EOSINOPHILS # (AUTO) 0.2 10^3/uL (0.0-0.3); EOSINOPHILS % (AUTO) 2 % (0-10); HEMATOCRIT 38 % (35-52); HEMOGLOBIN 12.1 G/DL (11.5-16.0); LYMPHOCYTES # (AUTO) 1.4 X 10^3 (1.0-4.0); LYMPHOCYTES % (AUTO) 20 % (12-44); MEAN CORPUSCULAR HEMOGLOBIN 32 PG (25-34); MEAN CORPUSCULAR HGB CONC 32 G/DL (32-36); MEAN CORPUSCULAR VOLUME 101 FL (80-99); MEAN PLATELET VOLUME 9.6 FL (7.4-10.4); MONOCYTES # (AUTO) 0.5 X 10^3 (0.0-1.0); MONOCYTES % (AUTO) 7 % (0-12); NEUTROPHILS % (AUTO) 71 % (42-75); PLATELET COUNT 208 10^3/uL (130-400); RED CELL DISTRIBUTION WIDTH 13.8 % (10.0-14.5); WHITE BLOOD COUNT 7.1 10^3/uL (4.3-11.0)
--- NOTE | 2019-10-31 22:19 | ED Upper Extremity ---
General Chief Complaint: Upper Extremity Stated Complaint: L ARM SWELLING/PAIN Nursing Triage Note: Pt here with her helper (due to short term memory loss) with left lower arm pain and swelling. 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 Pt rates pain 3/10. 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 HAS BEEN KEEPING IT COVERED AND NO SIGNIFICANT DRAINAGE FROM THE AREA--HAS NOT SOUGHT CARE FOR THAT PROBLEM PT HAD BREAST CANCER WITH LEFT LUMPECTOMY AND LYMPH NODE REMOVAL ON LEFT, WITH RESULTING LYMPHEDEMA. PCP: DERRICK-K Allergies and Home Medications Allergies Coded Allergies: No Known Drug Allergies (Unverified , 01/18/19) Home Medications Amitriptyline HCl 100 Mg Tablet, 100 MG PO DAILY, (Reported) Atorvastatin Calcium 40 Mg Tablet, 40 MG PO DAILY, (Reported) Ca Carbonate/Vitamin D3/Vit K 1 Each Tab.chew, 1 EACH PO DAILY, (Reported) Clindamycin HCl 300 Mg Capsule, 300 MG PO QID Prescribed by: JOHN CAMPBELL on 10/31/192320 Donepezil HCl 23 Mg Tablet, 23 MG PO HS, (Reported) Gabapentin 600 Mg Tablet, 600 MG PO TID, (Reported) L. Acidophilus/Pectin, Billings 1 Each Capsule, 2 EACH PO QID Prescribed by: JOHN CAMPBELL on 10/31/192320 Letrozole 2.5 Mg Tablet, 2.5 MG PO DAILY, (Reported) Melatonin 10 Mg Tablet.er, 20 MG PO HS, (Reported) Memantine HCl 28 Mg Cap.spr.24, 28 MG PO DAILY, (Reported) Mupirocin 22 Gm Oint...g., 22 GM TP BID Prescribed by: JOHN CAMPBELL on 10/31/19 8720 Patient Home Medication List Home Medication List Reviewed: Yes Review of Systems Constitutional: no symptoms reported; No fever Respiratory: no symptoms reported; No short of breath Cardiovascular: no symptoms reported Gastrointestinal: no symptoms reported Genitourinary: no symptoms reported Musculoskeletal: see HPI Skin: see HPI Psychiatric/Neurological: No Symptoms Reported, Pre-Existing Deficit (POOR MEMORY) Past Bchluad-Avnoiz-Svxwdy Hx Past Med/Social Hx: Reviewed and Corrections made Patient Social History Smoking Status: Former Smoker Type Used: Cigarettes Former Smoker, Quit: Jan 19, 2012 2nd Hand Smoke Exposure: Yes Recent Foreign Travel: No Contact w/Someone Who Travel: No Recent Infectious Disease Expo: No Recent Hopitalizations: No Immunizations Up To Date Tetanus Booster (TDap): Unknown Seasonal Allergies Seasonal Allergies: No Past Medical History Surgeries: Yes (LEFT BREAST LUMPECTOMY W/LYMPH NODE REMOVAL;BILAT CATARACTS;C- SCOPE 03/2019) Breast, Eye Surgery, Hysterectomy Respiratory: No Currently Using CPAP: No Currently Using BIPAP: No Cardiac: Yes High Cholesterol Neurological: Yes Dementia, Headaches /Migraines, 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 Sexually Transmitted Disease: No HIV/AIDS: No Genitourinary: No Gastrointestinal: Yes (COLONOSCOPY/POLYPECTOMY/TUBULAR ADENOMA 03/13/19) Chronic Constipation, Polyps Musculoskeletal: Yes (CHRONIC LYMPEDEMA LEFT ARM) Endocrine: No HEENT: Yes (BILATERAL CATARACT REMOVAL) Cataract Loss of Vision: Denies Hearing Impairment: Denies Cancer: Yes (LEFT BREAST LUMPECTOMY/LYMPH NODE REMOVAL/CHEMO/RADIATION) Breast Did You Recieve Any Treatments: Yes What Type of Treatment Did You: Chemotherapy, Radiation, Surgical Intervention Psychosocial: Yes Anxiety, Depression Integumentary: No Blood Disorders: No Adverse Reaction/Blood Tranf: No (N/A) Physical Exam Vital Signs Vital Signs - First Documented 10/31/19 21:23 Temp 36.7 Pulse 91 Resp 18 B/P (MAP) 139/79 (99) Pulse Ox 98 O2 Delivery Room Air Capillary Refill : Less Than 3 Seconds Height, Weight, BMI Height: 5'2.00" Weight: 140lbs. 0.0oz. [id number]; 25.00 BMI Method: General Appearance: WD/WN, no apparent distress Neck: normal inspection Cardiovascular: normal peripheral pulses, regular rate, rhythm, no murmur Respiratory: normal breath sounds, no respiratory distress Shoulder: normal inspection Elbow/Forearm: Left (MILD SWELLING TO LEFT ARM AND HAND. SHALLOW ULCERATION BETWEEN LEFT 3RD AND 4TH FINGERS WITH ERYTHEMA AROUND THE ULCERATION, WITH SLIGHT ERYTHYEMA/STREAKING TO DORSUM OF LEFT HAND, WITH DIFFUSE ERYTHEMA AND WARMTH TO PROXIMAL ASPECT OF LEFT FOREARM. NO DRAINAGE FROM THE AREA. NO REDNESS TO ELBOW AREA OR UPPER ARM. MOTOR/SENSORY/VASCULAR INTACT. ), pain, soft tissue tenderness, swelling Wrist: Yes non-tender Hand: Left ( ABOVE), swelling Neurologic/Tendon: normal sensation, normal motor functions, normal tendon functions Neurologic/Psychiatric: no motor/sensory deficits, alert, normal mood/affect, oriented x 3, other (POOR MEMORY) Skin: normal color, warm/dry, other ( ABOVE) Progress/Results/Core Measures Results/Orders Lab Results Laboratory Tests Test 10/31/19 22:00 Range/Units White Blood Count 7.1 4.3-11.0 10^3/uL Red Blood Count 3.75 L 4.35-5.85 10^6/uL Hemoglobin 12.1 11.5-16.0 G/DL Hematocrit 38 35-52 % Mean Corpuscular Volume 101 H 80-99 FL Mean Corpuscular Hemoglobin 32 25-34 PG Mean Corpuscular Hemoglobin Concent 32 32-36 G/DL Red Cell Distribution Width 13.8 10.0-14.5 % Platelet Count 208 130-400 10^3/uL Mean Platelet Volume 9.6 7.4-10.4 FL Neutrophils (%) (Auto) 71 42-75 % Lymphocytes (%) (Auto) 20 12-44 % Monocytes (%) (Auto) 7 0-12 % Eosinophils (%) (Auto) 2 0-10 % Basophils (%) (Auto) 0 0-10 % Neutrophils # (Auto) 5.0 1.8-7.8 X 10^3 Lymphocytes # (Auto) 1.4 1.0-4.0 X 10^3 Monocytes # (Auto) 0.5 0.0-1.0 X 10^3 Eosinophils # (Auto) 0.2 0.0-0.3 10^3/uL Basophils # (Auto) 0.0 0.0-0.1 10^3/uL Erythrocyte Sedimentation Rate 15 0-30 MM/HR Sodium Level 142 135-145 MMOL/L Potassium Level 4.2 3.6-5.0 MMOL/L Chloride Level 107 98-107 MMOL/L Carbon Dioxide Level 25 21-32 MMOL/L Anion Gap 10 5-14 MMOL/L Blood Urea Nitrogen 18 7-18 MG/DL Creatinine 0.77 0.60-1.30 MG/DL Estimat Glomerular Filtration Rate > 60 BUN/Creatinine Ratio 23 Glucose Level 91 70-105 MG/DL Lactic Acid Level 1.50 0.50-2.00 MMOL/L Calcium Level 9.1 8.5-10.1 MG/DL Corrected Calcium 9.3 8.5-10.1 MG/DL Total Bilirubin 0.2 0.1-1.0 MG/DL Aspartate Amino Transf (AST/SGOT) 16 5-34 U/L Alanine Aminotransferase (ALT/SGPT) 21 0-55 U/L Alkaline Phosphatase 90 40-136 U/L Total Protein 6.9 6.4-8.2 GM/DL Albumin 3.8 3.2-4.5 GM/DL Procalcitonin 0.03 <0.10 NG/ML My Orders Orders - JOHN CAMPBELL DO Ed Iv/Invasive Line Start (10/31/19 21:30) Cbc With Automated Diff (10/31/19 21:30) Comprehensive Metabolic Panel (10/31/19 21:30) Erythrocyte Sedimentation Rate (10/31/19 21:30) Lactic Acid Analyzer (10/31/19 21:41) Procalcitonin (Pct) (10/31/19 21:41) Blood Culture (10/31/19 21:41) Clindamycin 900 Mg/50 Ml Ivpb (Cleocin P (10/31/19 21:45) Medications Given in ED Current Medications Medications Dose Ordered Sig/Becca Route Start Time Stop Time Status Last Admin Dose Admin Clindamycin Phosphate/Dextrose 50 ml @ 100 mls/hr ONCE ONCE IV 10/31/19 21:45 10/31/19 22:14 DC 10/31/19 22:28 100 MLS/HR Vital Signs/I&O 10/31/19 10/31/19 10/31/19 21:23 22:50 23:40 Temp 36.7 Pulse 91 85 95 Resp 18 18 18 B/P (MAP) 139/79 (99) 139/79 (99) 133/78 Pulse Ox 98 99 100 O2 Delivery Room Air Room Air Room Air Blood Pressure Mean: 99 Progress Progress Note : Progress Note GIVEN CLINDAYMCYIN IV--LESS SWELLING AND LESS REDNESS AFTERWARD, PT STATES IT IS NOT SORE ADVISED OF NEED FOR FOLLOW UP AT [facility] IN 1-2 DAYS AND RETURN TO ER IF WORSE Departure Impression Primary Impression: CELLULITIS LEFT ARM AND HAND Additional Impression: ULCERATION BETWEEN LEFT FINGERS Disposition: HOME, SELF-CARE Condition: Improved Departure-Patient Inst. Referrals: [facility] [place] (PCP) Primary Care Physician ALAN MITCHELL (Family) Primary Care Physician Patient Instructions: Cellulitis (Skin Infection), Adult (DC), Lymphedema After Breast Cancer Treatment, Wound Care (DC) Add. Discharge Instructions: CLEAN WOUND TWICE A DAY WITH ANTIBACTERIAL SOAP AND WATER, APPLY ANTIBIOTIC OINTMENT AND FRESH DRESSING TWICE A DAY ELEVATE ARM MUCH POSSIBLE TYLENOL AND MOTRIN NEEDED FOR PAIN OR FEVER FOLLOW UP WITH [facility] IN 1-2 DAYS FOR FURTHER CARE, RETURN TO ER IF WORSE All discharge instructions reviewed with patient and/or family. Voiced understanding. Scripts L. Acidophilus/Pectin, Billings (Acidophilus Capsule) 1 Each Capsule 2 EACH PO QID, #40 CAP Prov: JOHN CAMPBELL DO 10/31/19 Mupirocin (Mupirocin) 22 Gm Oint...g. 22 GM TP BID, #1 TUBE Prov: JOHN CAMPBELL DO 10/31/19 Clindamycin HCl (Clindamycin HCl) 300 Mg Capsule 300 MG PO QID for 10 Days, #40 CAP Prov: JOHN CAMPBELL DO 10/31/19 JOHN CAMPBELL DO Oct 31, 2019 22:19
[2019-10-31 22:27] LABS: ALBUMIN 3.8 GM/DL (3.2-4.5)
[2019-10-31 22:28] LABS: CHLORIDE 107 MMOL/L (98-107); POTASSIUM 4.2 MMOL/L (3.6-5.0); SODIUM 142 MMOL/L (135-145)
[2019-10-31 22:29] LABS: CALCIUM 9.1 MG/DL (8.5-10.1)
[2019-10-31 22:30] LABS: GLUCOSE 91 MG/DL (70-105); TOTAL PROTEIN 6.9 GM/DL (6.4-8.2)
[2019-10-31 22:31] LABS: CARBON DIOXIDE 25 MMOL/L (21-32)
[2019-10-31 22:32] LABS: BILIRUBIN,TOTAL 0.2 MG/DL (0.1-1.0)
[2019-10-31 22:33] LABS: ALKALINE PHOSPHATASE 90 U/L (40-136)
[2019-10-31 22:34] LABS: CREATININE SERUM 0.77 MG/DL (0.60-1.30); GFR ESTIMATED > 60
[2019-10-31 22:35] LABS: BUN/CREATININE RATIO 23
[2019-10-31 22:37] LABS: ALANINE AMINOTRANSFERASE 21 U/L (0-55)
--- NOTE | 2019-10-31 22:42 | NUR ---
Late entry: Pt reports no injury to her left lower arm but does have swelling/redness/warmth to this area. Pt reports to ERP that she had a blister between her fingers and has a bandaid to that area; some swelling is noted to the top of her hand. Pt denies fever at home. Pt also has a hx of lymphedema to this extremity.
[2019-10-31 22:50] VITALS: BP 139/79
[2019-10-31 23:08] LABS: ERYTHROCYTE SEDIMENTATION RATE 15 MM/HR (0-30)
--- NOTE | 2019-10-31 23:16 | NUR ---
Dr. Savage at bedside with results and plan of care.
[2019-10-31] MEDS ORDERED: CLIN300C11 PO (23:21)
[2019-10-31] MEDS ORDERED: L. A1CAP11 PO (23:21)
[2019-10-31] MEDS ORDERED: MUPI22OI2 TP (23:21)
[2019-10-31 23:40] VITALS: BP 133/78
== END 2019-10-31 23:36 | disposition home or self-care (01) ==
LOC: EDUNIT# 21:13 → ER 21:16
DX: L03.114 Cellulitis of left upper limb (principal); L98.499 Non-pressure chronic ulcer of skin of other sites with unspecified severity; E78.00 Pure hypercholesterolemia, unspecified; F03.90 Unspecified dementia, unspecified severity, without behavioral disturbance, psychotic disturbance, mood disturbance, and anxiety; G62.9 Polyneuropathy, unspecified; Z87.891 Personal history of nicotine dependence; Z85.3 Personal history of malignant neoplasm of breast; Z77.22 Contact with and (suspected) exposure to environmental tobacco smoke (acute) (chronic)
CPT/HCPCS: 36415; 80053; 83605; 84145; 85025; 85652; 87040

== ENCOUNTER 2020-08-24 05:38 | Outpatient (CLI) | payer OTHER, MEDICAID ==
[~2020-08-24] VITALS: Ht 157.5 cm; Wt 62.1 kg
[~2020-08-24 05:38] MED LIST changes: +CLIN300C12 PO; +L. A1CAP11 PO; +MUPI22OI2 TP
[2020-08-24] MEDS ORDERED: ALEN70TA80 PO (15:00)
== END 2020-08-24 15:56 | disposition home or self-care (01) ==
LOC: PREOP 05:38
PROVIDERS: ATTEND Surgery
DX: Z01.818 Encounter for other preprocedural examination (principal)

== ENCOUNTER 2020-08-31 10:56 | Day surgery (SDC) | payer MEDICARE, MEDICAID ==
[~2020-08-31] VITALS: Ht 157 cm; Wt 62.0 kg
[~2020-08-31 10:56] MED LIST changes: +ALEN70TA80 PO
[2020-08-31] MEDS ORDERED: LACTATED RINGERS 1,000 ML IV STA (10:58)
[2020-08-31] MEDS ORDERED: LACTATED RINGERS 1,000 ML IV ONE (11:04)
[2020-08-31 11:20] VITALS: BP 117/69
[2020-08-31] MEDS ORDERED: PROPOFOL INJECTION 50 ML IV ONE (11:39)
[2020-08-31] MEDS ORDERED: MIDAZOLAM 2 MG/2 ML (VERSED) VIAL ONE (11:39)
--- NOTE | 2020-08-31 11:39 | Progress Note-Pre Operative ---
Pre-Operative Progress Note H&P Reviewed The H&P was reviewed, patient examined and no changes noted. Time Seen by Provider: 11:36 Date H&P Reviewed: Aug 31, 2020 Time H&P Reviewed: 11:36 Pre-Operative Diagnosis: Hx of polyps DAO MUHAMMAD DO Aug 31, 2020 11:39
[2020-08-31 12:05] VITALS: BP 94/54
--- NOTE | 2020-08-31 12:07 | Progress Note-Post Operative ---
Post-Operative Progess Note Surgeon (s)/Film Drying Machine Operator (s) Surgeon DAO MUHAMMAD DO Film Drying Machine Operator: none Pre-Operative Diagnosis Hx of polyps Post-Operative Diagnosis polyp int hemorrhoids Procedure & Operative Findings Date of Procedure 08/31/20 Procedure Performed/Findings After informed consent was obtained, the patient was brought to the endoscopy suite and placed in the bed in the left lateral decubitus position. She was administered IV sedation by the TESTING PROJECTS ADMINISTRATOR, who then monitored her vitals the entire time, heart rate, blood pressure and pulse ox and the scope was inserted, started the colonoscopy. Pushed all the way into about 150 cm to get all the way to cecum, took a picture of the appendiceal orifice, noted the ileocecal valve and then slowly withdrew the scope, insufflating to look circumferentiallly at the olson starting in the cecum, up the ascending colon where I found a small polyp and elected to do a cold biopsy. Continued up to the hepatic flexure, then down the transverse colon to the splenic flexure, into the descending colon, down into the sigmoid and finally into the rectum, retroflexed in the rectal vault, saw some minimal internal hemorrhoids and took a picture of this. The patient tolerated the procedure and she recovered in the endoscopy suite. Anesthesia Type IV sedation by TESTING PROJECTS ADMINISTRATOR Estimated Blood Loss Estimated blood loss (mL): scant Specimens/Packing Specimens Removed asc colon polyp DAO MUHAMMAD DO Aug 31, 2020 12:07
--- NOTE | 2020-08-31 12:08 | Endoscopy Discharge Instruct ---
Endo Procedure/Findings Findings 1.: Polyp 2.: Internal Hemorrhoids Discharge Instructions - Activity: You might feel a little sleepy until tomorrow. This is due to the medicine you received to relax you. Until tomorrow, you should: NOT drive a car, operate machinery or power tools. NOT drink any alcoholic beverages. NOT make any important decisions or sign importortant papers. Do not return to work until tomorrow, unless otherwise instructed. Resume previous activities tomorrow. Diet: Start by taking liquids. If you tolerate liquids, advance to solid food. 1.: Colonscopy in 5 years Notify Physician - If you experience excessive bleeding, unusual abdominal pain, fever, or chest pain, contact your doctor immediately. DAO MUHAMMAD DO Aug 31, 2020 12:08
[2020-08-31 12:10] VITALS: BP 86/50
[2020-08-31 12:15] VITALS: BP_SYST 113; BP_SYST 99; BP_DIAS 54; BP_DIAS 62
--- NOTE | 2020-08-31 12:23 | Anesthesia-General Post-Op ---
MAC Patient Condition Mental Status/LOC: Same as Preop Cardiovascular: Satisfactory Nausea/Vomiting: Absent Respiratory: Satisfactory Pain: Controlled Complications: Absent Post Op Complications Complications None Follow Up Care/Instructions Patient Instructions None needed. Anesthesiology Discharge Order Discharge Order Patient is doing well, no complaints, stable vital signs, no apparent adverse anesthesia problems. No complications reported per nursing. SHARRON TELLES CRNA Aug 31, 2020 12:23
[2020-08-31 12:45] VITALS: BP 99/71
[2020-08-31 12:48] VITALS: BP 99/71
== END 2020-08-31 12:51 | disposition home or self-care (01) ==
LOC: ENDO 10:56
PROVIDERS: ATTEND Surgery
DX: Z12.11 Encounter for screening for malignant neoplasm of colon (principal); D12.2 Benign neoplasm of ascending colon; K64.8 Other hemorrhoids; E78.00 Pure hypercholesterolemia, unspecified; E11.40 Type 2 diabetes mellitus with diabetic neuropathy, unspecified; F41.9 Anxiety disorder, unspecified; Z79.899 Other long term (current) drug therapy; Z80.0 Family history of malignant neoplasm of digestive organs; Z87.891 Personal history of nicotine dependence; Z85.3 Personal history of malignant neoplasm of breast

== ENCOUNTER 2020-09-09 18:45 | Emergency (ER) | payer MEDICARE, MEDICAID ==
[~2020-09-09] VITALS: Ht 157.4 cm; Wt 47.6 kg
--- NOTE | 2020-09-09 19:04 | ED Respiratory ---
General Stated Complaint: COVID POSITIVE/ LOW O2 Source: patient, family Exam Limitations: clinical condition History of Present Illness Date Seen by Provider: Sep 09, 2020 Time Seen by Provider: 18:52 Initial Comments This is a 65-year-old female presents to the ER via POV from [facility] urgent care. She is Covid positive and reports oxygen saturation 88% on room air while at urgent care. She is referred over and refused EMS transport. Allergies and Home Medications Allergies Coded Allergies: No Known Drug Allergies (Unverified , 01/18/19) Home Medications Alendronate Sodium 70 Mg Tablet, 70 MG PO DAILY, (Reported) Amitriptyline HCl 100 Mg Tablet, 100 MG PO DAILY, (Reported) Atorvastatin Calcium 40 Mg Tablet, 40 MG PO DAILY, (Reported) Ca Carbonate/Vitamin D3/Vit K 1 Each Tab.chew, 1 EACH PO DAILY, (Reported) Donepezil HCl 23 Mg Tablet, 23 MG PO HS, (Reported) Gabapentin 600 Mg Tablet, 600 MG PO TID, (Reported) Letrozole 2.5 Mg Tablet, 2.5 MG PO DAILY, (Reported) Melatonin 10 Mg Tablet.er, 20 MG PO HS, (Reported) Memantine HCl 28 Mg Cap.spr.24, 28 MG PO DAILY, (Reported) Past Dlvtfwd-Dpuinx-Bjsbvu Hx Immunizations Up To Date Tetanus Booster (TDap): Unknown Seasonal Allergies Seasonal Allergies: No Past Medical History Surgeries: Yes (LEFT BREAST LUMPECTOMY W/LYMPH NODE REMOVAL;BILAT CATARACTS;C- SCOPE 03/2019) Breast, Eye Surgery, Hysterectomy Respiratory: No Currently Using CPAP: No Currently Using BIPAP: No Cardiac: Yes High Cholesterol Neurological: Yes Dementia, Headaches /Migraines, 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 Sexually Transmitted Disease: No HIV/AIDS: No Genitourinary: No Gastrointestinal: Yes (COLONOSCOPY/POLYPECTOMY/TUBULAR ADENOMA 03/13/19) Chronic Constipation, Polyps Musculoskeletal: Yes (CHRONIC LYMPEDEMA LEFT ARM) Endocrine: No HEENT: Yes (BILATERAL CATARACT REMOVAL) Cataract Loss of Vision: Denies Hearing Impairment: Denies Cancer: Yes (LEFT BREAST LUMPECTOMY/LYMPH NODE REMOVAL/CHEMO/RADIATION) Breast Did You Recieve Any Treatments: Yes What Type of Treatment Did You: Chemotherapy, Radiation, Surgical Intervention Psychosocial: Yes Anxiety, Depression Integumentary: No Blood Disorders: No Adverse Reaction/Blood Tranf: No (N/A) Physical Exam Vital Signs - First Documented 09/09/20 09/09/20 19:41 19:50 Temp 37.7 Pulse 111 Resp 20 B/P (MAP) 125/67 (86) Pulse Ox 95 Capillary Refill : Height: 5'2.00" Weight: 140lbs. 0.0oz. 63.987243wa; 25.15 BMI Method: Focused Exam Lactate Level 09/09/20 19:15: Lactic Acid Level 0.63 Lactic Acid Level Laboratory Tests Test 09/09/20 19:15 Lactic Acid Level 0.63 MMOL/L (0.50-2.00) Progress/Results/Core Measures Suspected Sepsis SIRS Temperature: Pulse: Respiratory Rate: Laboratory Tests 09/09/20 19:05: White Blood Count 3.7L Blood Pressure / Mean: 09/09/20 19:15: Lactic Acid Level 0.63 Laboratory Tests 09/09/20 19:05: Creatinine 0.77, INR Comment 0.9, Platelet Count 137, Total Bilirubin 0.3 Results/Orders Lab Results Laboratory Tests Test 09/09/20 19:05 09/09/20 19:15 09/09/20 19:26 Range/Units White Blood Count 3.7 L 4.3-11.0 10^3/uL Red Blood Count 3.73 L 3.80-5.11 10^6/uL Hemoglobin 12.1 11.5-16.0 g/dL Hematocrit 37 35-52 % Mean Corpuscular Volume 100 H 80-99 fL Mean Corpuscular Hemoglobin 32 25-34 pg Mean Corpuscular Hemoglobin Concent 32 32-36 g/dL Red Cell Distribution Width 13.3 10.0-14.5 % Platelet Count 137 130-400 10^3/uL Mean Platelet Volume 10.5 9.0-12.2 fL Immature Granulocyte % (Auto) 1 % Neutrophils (%) (Auto) 65 42-75 % Lymphocytes (%) (Auto) 28 12-44 % Monocytes (%) (Auto) 7 0-12 % Eosinophils (%) (Auto) 0 0-10 % Basophils (%) (Auto) 0 0-10 % Neutrophils # (Auto) 2.4 1.8-7.8 10^3/uL Lymphocytes # (Auto) 1.1 1.0-4.0 10^3/uL Monocytes # (Auto) 0.2 0.0-1.0 10^3/uL Eosinophils # (Auto) 0.0 0.0-0.3 10^3/uL Basophils # (Auto) 0.0 0.0-0.1 10^3/uL Immature Granulocyte # (Auto) 0.0 0.0-0.1 10^3/uL Prothrombin Time 12.8 12.2-14.7 SEC INR Comment 0.9 0.8-1.4 Activated Partial Thromboplast Time 27 24-35 SEC D-Dimer 0.48 0.00-0.49 UG/ML Sodium Level 140 135-145 MMOL/L Potassium Level 4.1 3.6-5.0 MMOL/L Chloride Level 102 98-107 MMOL/L Carbon Dioxide Level 31 21-32 MMOL/L Anion Gap 7 5-14 MMOL/L Blood Urea Nitrogen 13 7-18 MG/DL Creatinine 0.77 0.60-1.30 MG/DL Estimat Glomerular Filtration Rate > 60 BUN/Creatinine Ratio 17 Glucose Level 108 H 70-105 MG/DL Calcium Level 9.3 8.5-10.1 MG/DL Corrected Calcium 9.6 8.5-10.1 MG/DL Total Bilirubin 0.3 0.1-1.0 MG/DL Aspartate Amino Transf (AST/SGOT) 30 5-34 U/L Alanine Aminotransferase (ALT/SGPT) 32 0-55 U/L Alkaline Phosphatase 65 40-136 U/L Lactate Dehydrogenase 248 H 125-220 U/L Troponin I < 0.028 <0.028 NG/ML C-Reactive Protein High Sensitivity 1.71 H 0.00-0.50 MG/DL Total Protein 6.5 6.4-8.2 GM/DL Albumin 3.6 3.2-4.5 GM/DL Lactic Acid Level 0.63 0.50-2.00 MMOL/L Blood Gas Puncture Site RIGHT WRIST Blood Gas Patient Temperature 99.9 Arterial Blood pH 7.42 7.37-7.43 Arterial Blood Partial Pressure CO2 49 H 35-45 MMHG Arterial Blood Partial Pressure O2 87 79-93 MMHG Arterial Blood HCO3 31 H 23-27 MMOL/L Arterial Blood Total CO2 32.4 H 21.0-31.0 MMOL/L Arterial Blood Oxygen Saturation 95 94-100 % Arterial Blood Base Excess 6.6 H -2.5-2.5 MMOL/L Bonilla Test POS Blood Gas Ventilator Setting NO Blood Gas Inspired Oxygen NA My Orders Orders - KYLEE MORALES APRN Cbc With Automated Diff (09/09/20 19:01) Comprehensive Metabolic Panel (09/09/20 19:01) Arterial Blood Gas (09/09/20 19:01) Chest 1 View, Ap/Pa Only (09/09/20 19:01) LDH (09/09/20 19:) Hs C Reactive Protein (09/09/20 19:) Troponin I (09/09/20 19:) Lactic Acid Analyzer (09/09/20 19:) Protime With Inr (09/09/20:) Partial Thromboplastin Time (09/09/20 19:) Fibrin Degradation Products (09/09/20 19:) Ekg Tracing (09/09/20 19:01) Acetaminophen Tablet/Caplet (Tylenol T (09/09/20 19:15) Medications Given in ED Current Medications Medications Dose Ordered Sig/Becca Route Start Time Stop Time Status Last Admin Dose Admin Acetaminophen 650 mg ONCE ONCE PO 09/09/20 19:15 09/09/20 19:16 DC 09/09/20 19:41 650 MG Vital Signs/I&O 09/09/20 09/09/20 19:41 19:50 Temp 37.7 37.7 Pulse 111 Resp 20 B/P (MAP) 125/67 (86) Pulse Ox 95 Capillary Refill : Departure Impression Primary Impression: COVID-19 Disposition: 01 HOME, SELF-CARE Condition: Stable Departure-Patient Inst. Decision time for Depature: 20:15 Referrals: [facility] (PCP) Primary Care Physician ALAN MITCHELL (Family) Primary Care Physician Patient Instructions: COVID-19 ED Add. Discharge Instructions: Plan: 1. Isolate at home until you are released by [facility]. 2. Drink plenty of fluids. 3. Use Albuterol inhaler 2 puffs every 4 hours as needed for shortness of breat h. 4. Return to ER for any new, concerning, or worsening symptoms. Scripts Albuterol Sulfate (VENTOLIN HFA) 1 Puff Puff 2 PUFF INH Q4H for 10 Days, #1 INHALER 0 Refills 1 PUFF = 90 MCG Prov: KYLEE MORALES APRN 09/09/20 KYLEE MORALES APRN Sep 09, 2020 19:04
[2020-09-09] MEDS ORDERED: ACETAMINOPHEN 325 MG TABLET PO ONE (19:15)
[2020-09-09 19:47] LABS: ABG BASE EXCESS 6.6 MMOL/L (-2.5-2.5); ABG OXYGEN SATURATION 95 % (94-100); ABG PCO2 49 MMHG (35-45); ABG PH 7.42 (7.37-7.43); ABG PO2 87 MMHG (79-93); ABG TCO2 32.4 MMOL/L (21.0-31.0)
[2020-09-09 19:51] LABS: ALANINE AMINOTRANSFERASE 32 U/L (0-55); ALBUMIN 3.6 GM/DL (3.2-4.5); ALKALINE PHOSPHATASE 65 U/L (40-136); BILIRUBIN,TOTAL 0.3 MG/DL (0.1-1.0); BUN/CREATININE RATIO 17; CALCIUM 9.3 MG/DL (8.5-10.1); CARBON DIOXIDE 31 MMOL/L (21-32); CHLORIDE 102 MMOL/L (98-107); CREATININE SERUM 0.77 MG/DL (0.60-1.30); GFR ESTIMATED > 60; GLUCOSE 108 MG/DL (70-105); POTASSIUM 4.1 MMOL/L (3.6-5.0); SODIUM 140 MMOL/L (135-145); TOTAL PROTEIN 6.5 GM/DL (6.4-8.2)
[2020-09-09 19:55] LABS: ALLENS TEST POS; PATIENT TEMP 99.9; VENTILATOR NO
[2020-09-09 20:03] LABS: BASOPHILS % (AUTO) 0 % (0-10); EOSINOPHILS % (AUTO) 0 % (0-10); HEMATOCRIT 37 % (35-52); HEMOGLOBIN 12.1 g/dL (11.5-16.0); LYMPHOCYTES # (AUTO) 1.1 10^3/uL (1.0-4.0); LYMPHOCYTES % (AUTO) 28 % (12-44); MEAN CORPUSCULAR HEMOGLOBIN 32 pg (25-34); MEAN CORPUSCULAR HGB CONC 32 g/dL (32-36); MEAN CORPUSCULAR VOLUME 100 fL (80-99); MEAN PLATELET VOLUME 10.5 fL (9.0-12.2); MONOCYTES # (AUTO) 0.2 10^3/uL (0.0-1.0); MONOCYTES % (AUTO) 7 % (0-12); NEUTROPHILS # (AUTO) 2.4 10^3/uL (1.8-7.8); NEUTROPHILS % (AUTO) 65 % (42-75); PLATELET COUNT 137 10^3/uL (130-400); WHITE BLOOD COUNT 3.7 10^3/uL (4.3-11.0)
--- NOTE | 2020-09-09 20:09 | Diagnostic Imaging Report ---
EXAMINATION: Chest 1 view HISTORY: COVID positive. Shortness of breath. COMPARISON: None available. FINDINGS: The lung volumes are normal. No focal consolidation is seen. No large pleural effusion or pneumothorax is seen. The cardiomediastinal silhouette is normal in size and contour. No acute osseous abnormality is seen. IMPRESSION: 1. No focal consolidation or pleural effusion. Recommend followup as indicated. Dictated by: Dictated on workstation # [id number]
[2020-09-09 20:11] LABS: FIBRIN DEGRADATION PRODUCTS 0.48 UG/ML (0.00-0.49); INR 0.9 (0.8-1.4); PROTHROMBIN TIME PATIENT 12.8 SEC (12.2-14.7)
[2020-09-09] MEDS ORDERED: RT-ALBUINH INH (20:18)
[2020-09-09] MEDS ORDERED: RX-ALBUTEROL INHALER (VENTOLIN HFA) 18 GM IH STA (20:34)
[2020-09-09 20:50] VITALS: BP 123/102
== END 2020-09-09 20:50 | disposition home or self-care (01) ==
LOC: EDUNIT# 18:51 → ER 18:53
DX: U07.1 COVID-19 (principal); E78.00 Pure hypercholesterolemia, unspecified; F03.90 Unspecified dementia, unspecified severity, without behavioral disturbance, psychotic disturbance, mood disturbance, and anxiety; F32.9 Major depressive disorder, single episode, unspecified; F41.9 Anxiety disorder, unspecified; Z79.899 Other long term (current) drug therapy
CPT/HCPCS: 36415; 71045; 80053; 82805; 83605; 83615; 84484; 85025; 85379; 85610; 85730; 86141; 93005

== ENCOUNTER → 2020-12-29 | Outpatient (CLI) | payer MEDICARE, MEDICAID ==
[~2020-12-29] MED LIST changes: +CLIN-144 PO; -CLIN300C12 PO; +MEMA28CA16 PO; -MEMA28CA5 PO; +RT-ALBUINH INH
--- NOTE | 2020-12-29 12:05 | Diagnostic Imaging Report ---
INDICATION: M81.0, postmenopausal state COMPARISON: 12/25/2018 FINDINGS: AP Spine L1-L4: [BMD (g/cm2): 1.113] [T-Score: -0.7] [Z-Score: 0.8] [BMD Previous: 1.102] [BMD % Change: 1.0] LT Hip Neck: [BMD (g/cm2): 0.830] [T-Score: -1.5] [Z-Score: 0.0] LT Hip Total: [BMD (g/cm2):0.934] [T-Score:-0.6] [Z-Score: 0.6] [BMD Previous: 0.922] [BMD % Change: 1.3] RT Hip Neck: [BMD (g/cm2):0.610] [T-Score:-3.1] [Z-Score:-1.6] RT Hip Total: [BMD (g/cm2):0.775] [T-score:-1.8] [Z-Score:-0.7] [BMD Previous:0.802] [BMD % Change:-3.4] *Indicates significant change from prior examination based on 95% confidence level. World Health Organization criteria for BMD interpretation classify patients as Normal (T-score at or above -1.0), Osteopenic (T-score between -1.0 and -2.5) or Osteoporotic (T-score at or below -2.5). LIMITATIONS AND MODIFICATION: None. FRACTURE RISK (FRAX SCORE): The ten year probability of (%): Major Osteoporotic Fracture: [16.8] Hip Fracture: [5.0] IMPRESSION: 1. Osteoporosis. 2. No significant change in bone mineral density since prior examination. 3. See below National Osteoporosis Foundation guidelines on when to potentially initiate pharmacologic therapy. Based on the National Osteoporosis Foundation Guidelines, pharmacologic treatment should be initiated in any of the following, unless clinical conditions suggest otherwise: * Any patient with prior fragility fracture of the hip or vertebrae. A spine fracture indicates 5X risk for subsequent spine fracture and 2X risk for subsequent hip fracture. * Osteoporosis (T-score <-2.5). * Postmenopausal women and men age 50 and older with low bone mass/osteopenia (T-score between -1.0 and -2.5) by DXA and 10-year major osteoporotic fracture greater than 20% or a 10-year probability of hip fracture greater than 3%. These fracture risks are supplied above in the FRAX score, if applicable. * Clinician judgement and/or patient preferences may indicate treatment for people with 10-year fracture probabilities above or below these levels. Dictated by: Dictated on workstation # [id number]
== END ==
LOC: RAD 11:30
PROVIDERS: ATTEND Internal Medicine Hematology & Oncology
DX: M81.0 Age-related osteoporosis without current pathological fracture (principal); C50.912 Malignant neoplasm of unspecified site of left female breast; Z17.0 Estrogen receptor positive status [ER+]; Z78.0 Asymptomatic menopausal state
CPT/HCPCS: 77080

== ENCOUNTER 2022-03-02 09:28 | Outpatient (CLI) | payer MEDICARE, MEDICAID ==
[~2022-03-02] VITALS: Ht 160 cm; Wt 58.2 kg
[2022-03-08] MEDS ORDERED: MELA1TAB20 PO (12:23)
[2022-03-08] MEDS ORDERED: CYAN-23 PO (12:23)
[2022-03-08] MEDS ORDERED: CHOL1LIQ MC (12:23)
[2022-03-08] MEDS ORDERED: DOCU-26 PO (12:23)
[2022-03-08] MEDS ORDERED: MEMA28CA PO (12:23)
[2022-03-08] MEDS ORDERED: DONE23TA PO (12:23)
[2022-03-08] MEDS ORDERED: AMIT100T2 PO (12:23)
[2022-03-08] MEDS ORDERED: GBPN600T PO (12:23)
[2022-03-08] MEDS ORDERED: ALEN70TA85 PO (12:23)
[2022-03-08] MEDS ORDERED: LETR2.5T6 PO (12:23)
[2022-03-08] MEDS ORDERED: ATOR40TA70 PO (12:23)
[2022-03-08] MEDS ORDERED: CALC600T91 PO (12:23)
== END 2022-03-08 12:37 | disposition home or self-care (01) ==
LOC: PREOP 09:28
PROVIDERS: ATTEND Specialist
DX: Z01.818 Encounter for other preprocedural examination (principal); H26.491 Other secondary cataract, right eye

== ENCOUNTER 2022-03-11 09:59 | Day surgery (SDC) | payer MEDICARE, MEDICAID ==
[~2022-03-11] VITALS: Ht 160 cm; Wt 58.2 kg
[~2022-03-11 09:59] MED LIST changes: +ALEN70TA85 PO; +CALC600T91 PO; +CHOL1LIQ MC; +CYAN-23 PO; +DOCU-26 PO; +MELA1TAB20 PO; +MEMA28CA PO
[2022-03-11 10:15] VITALS: BP 99/64
[2022-03-11] MEDS ORDERED: PHENYLEPHRINE 10% OPHTH (NEO-SYN) 5 ML BTL OU PRN (10:15)
[2022-03-11] MEDS ORDERED: TROPICAMIDE 1% OPH SOLN (MYDRIACYL) 15 ML BTL OU PRN (10:15)
[2022-03-11] MEDS: TETRACAINE 0.5% OPHTH SOLN 4 ML BTL (SINGLE DOSE ONLY) OU PRN ×3 (10:19→10:25)
--- NOTE | 2022-03-11 11:23 | Ophthalmologist Pre-Op Note ---
Pre-Operative Progress Note H&P Reviewed The H&P was reviewed, patient examined and no changes noted. Date H&P Reviewed: Mar 11, 2022 Time H&P Reviewed: 11:23 Pre-Op Dx Secondary Cataract, Right Eye NINO DELAROSA MD Mar 11, 2022 11:23
--- NOTE | 2022-03-11 11:43 | Ophthalmology Operative Report ---
YAG Capsulotomy PREOPERATIVE DIAGNOSIS: Secondary Cataract Right Eye POSTOPERATIVE DIAGNOSIS: Secondary Cataract Right Eye PROCEDURE: YAG Capsulotomy, right eye SURGEON: Marcos Delarosa ANESTHESIA: Topical anesthesia COMPLICATIONS: None ESTIMATED BLOOD LOSS: Minimal DESCRIPTION OF PROCEDURE: After proper informed consent was obtained, the patient's, a 66 female, right eye received one drop of Tropicamide and one drop of Tetracaine. The patient was then placed at the YAG laser and using a power of [4.1 ] millijoules and [17 ] bursts were used to fashion a central capsulotomy. The patient tolerated the procedure well without complications. MARCOS DELAROSA MD Mar 11, 2022 11:43
== END 2022-03-11 11:30 | disposition home or self-care (01) ==
LOC: SDC 09:59 → EDSTATUS 13:30
PROVIDERS: ATTEND Specialist
DX: H26.40 Unspecified secondary cataract (principal); Z87.891 Personal history of nicotine dependence

== ENCOUNTER → 2022-12-13 | Outpatient (CLI) | payer MEDICARE, MEDICAID ==
[~2022-12-13] MED LIST changes: -MELA1TAB20 PO; +MELA1TAB72 PO
--- NOTE | 2022-12-13 15:20 | Diagnostic Imaging Report ---
INDICATION: Postmenopausal state. COMPARISON: 12/29/2020. FINDINGS: AP Spine L1-L4: [BMD (g/cm2): 1.094] [T-Score: -0.9] [Z-Score: 1.0] [BMD Previous: 1.113] [BMD % Change: -1.7] LT Hip Neck: [BMD (g/cm2): 0.778] [T-Score: -1.9] [Z-Score: -0.2] LT Hip Total: [BMD (g/cm2):0.912] [T-Score:-0.8] [Z-Score: 0.7] [BMD Previous: 0.934] [BMD % Change: -2.4] RT Hip Neck: [BMD (g/cm2):0.683] [T-Score:-2.6] [Z-Score:-0.9] RT Hip Total: [BMD (g/cm2):0.815] [T-score:-1.5] [Z-Score:-0.1] [BMD Previous:0.755] [BMD % Change:5.2*] *Indicates significant change from prior examination based on 95% confidence level. World Health Organization criteria for BMD interpretation classify patients as Normal (T-score at or above -1.0), Osteopenic (T-score between -1.0 and -2.5) or Osteoporotic (T-score at or below -2.5). LIMITATIONS AND MODIFICATION: None. FRACTURE RISK (FRAX SCORE): The ten year probability of (%): Major Osteoporotic Fracture: [20.9] Hip Fracture: [4.9] IMPRESSION: 1. Osteoporosis. 2. Bone mineral density within the hips has significantly increased from the prior examination. Bone mineral density within the lumbar spine has not significantly changed. 3. See below National Osteopor[employer] Foundation guidelines on when to potentially initiate pharmacologic therapy. Based on the National Osteoporosis Foundation Guidelines, pharmacologic treatment should be initiated in any of the following, unless clinical conditions suggest otherwise: * Any patient with prior fragility fracture of the hip or vertebrae. A spine fracture indicates 5X risk for subsequent spine fracture and 2X risk for subsequent hip fracture. * Osteoporosis (T-score <-2.5). * Postmenopausal women and men age 50 and older with low bone mass/osteopenia (T-score between -1.0 and -2.5) by DXA and 10-year major osteoporotic fracture greater than 20% or a 10-year probability of hip fracture greater than 3%. These fracture risks are supplied above in the FRAX score, if applicable. * Clinician judgement and/or patient preferences may indicate treatment for people with 10-year fracture probabilities above or below these levels. Dictated by: Dictated on workstation # [id number]
== END ==
LOC: RAD 12:24
PROVIDERS: ATTEND Internal Medicine Hematology & Oncology
DX: C50.912 Malignant neoplasm of unspecified site of left female breast (principal); M81.0 Age-related osteoporosis without current pathological fracture; Z17.0 Estrogen receptor positive status [ER+]
CPT/HCPCS: 77080